=== PATIENT | female | born 1950 | race Caucasian/White ===

== ENCOUNTER 2018-01-11 12:32 | Inpatient (IN) | payer OTHER ==
[2018-01-11] MEDS: ONDANSETRON 4 MG INJ IV ×2 (13:12→22:26)
[2018-01-11] MEDS: morphine 4 MG/ML VIAL IV (13:13)
[2018-01-11 13:14] LABS: ADD MAN DIFF? NO
[2018-01-11 13:20] LABS: BASOPHILS % 0.2 % (0.0-2.0); EOSINOPHILS % 0.2 % (0.0-7.0); HEMATOCRIT 35.3 % (37.0-47.0); HEMOGLOBIN 11.3 g/dl (12.0-16.0); LYMPHOCYTES # 0.9 10^3/ul (0.8-2.9); MEAN CORPUSCULAR HEMOGLOBIN 26.7 pg (29.0-33.0); MEAN CORPUSCULAR VOLUME 83.3 fl (82.0-101.0); MEAN PLATELET VOLUME 10.4 fl (7.4-10.4); MONOCYTE # 0.4 10^3/ul (0.3-0.9); NEUTROPHIL # 9.7 10^3/ul (1.6-7.5); NEUTROPHILS % 87.2 % (39.0-77.0); PLATELET COUNT 264 10^3/UL (140-415); RED BLOOD COUNT 4.24 10^6/ul (4.20-5.40); RED CELL DISTRIBUTION WIDTH 14.6 % (11.5-14.5)
[2018-01-11 13:20] LABS: WHITE BLOOD COUNT 11.1 10^3/ul (4.8-10.8)
[2018-01-11 13:24] LABS: ADD UMIC NO; UR ASCORBIC ACID NEGATIVE (NEGATIVE); UR BILIRUBIN (Dip) NEGATIVE (NEGATIVE); UR BLOOD (Dip) NEGATIVE (NEGATIVE); UR CLARITY CLEAR (CLEAR); UR COLOR YELLOW (YELLOW); UR GLUCOSE (Dip) NEGATIVE (NEGATIVE); UR KETONES (Dip) NEGATIVE (NEGATIVE); UR LEUKOCYTE ESTERASE (Dip) NEGATIVE Leu/ul (NEGATIVE); UR NITRITE (Dip) NEGATIVE (NEGATIVE); UR SPECIFIC GRAVITY (Dip) 1.018 (1.003-1.030); UR TOTAL PROTEIN (Dip) NEGATIVE (NEGATIVE); UR UROBILINOGEN (Dip) NEGATIVE (NEGATIVE)
[2018-01-11 13:41] LABS: ALANINE AMINOTRANSFERASE 31 IU/L (13-69); ALBUMIN 3.9 g/dl (3.3-4.9); ALBUMIN/GLOBULIN RATIO 1.14; ALKALINE PHOSPHATASE 101 IU/L (42-121); ANION GAP 16 (8-16); ASPARTATE AMINO TRANSFERASE 20 IU/L (15-46); BILIRUBIN,INDIRECT 0.3 mg/dl (0-1.1); BILIRUBIN,TOTAL 0.3 mg/dl (0.2-1.3); BLOOD UREA NITROGEN 22 mg/dl (7-20); CALCIUM 9.6 mg/dl (8.4-10.2); CARBON DIOXIDE 23 mmol/L (21-31); CHLORIDE 109 mmol/L (97-110); CREATININE 0.43 mg/dl (0.44-1.00); GLUCOSE 127 mg/dl (70-220); LIPASE 39 U/L (23-300); POTASSIUM 4.1 mmol/L (3.5-5.1); SODIUM 144 mmol/L (135-144); TOTAL PROTEIN 7.3 g/dl (6.1-8.1)
[2018-01-11] MEDS ORDERED: ACETAMINOPHEN 325 MG TAB PO ×2 (16:00→16:30)
[2018-01-11] MEDS ORDERED: ONDANSETRON 4 MG INJ IV ×3 (16:00→20:30)
[2018-01-11] MEDS: AMPICILLIN/SULB 3 GM/NS (PMX) 100 ML IVPB (16:13)
[2018-01-11 16:27] LABS: INR 1.09; PROTIME 14.2 Sec (11.9-14.9); PT RATIO 1.1
[2018-01-11 16:28] LABS: PARTIAL THROMBOPLASTIN TIME 29.2 Sec (25.0-35.0)
[2018-01-11] MEDS ORDERED: MAGNESIUM HYDROXIDE 30ML CUP PO (16:30)
[2018-01-11] MEDS ORDERED: NACL 0.9% 3 ML SYG IV (16:30)
[2018-01-11] MEDS ORDERED: ACETAMINOPHEN 650 MG SUPP PR (16:30)
[2018-01-11] MEDS ORDERED: DOCUSATE SODIUM 100 MG CAP PO (16:30)
[2018-01-11] MEDS ORDERED: BISACODYL 10 MG SUPP PR (16:30)
[2018-01-11] MEDS ORDERED: morphine 2 MG INJ IV ×2 (16:30→19:00)
[2018-01-11 17:22] LABS: FREE T4 (FREE THYROXINE) 2.51 ng/dl (0.78-2.44)
[2018-01-11 17:48] LABS: THYROID STIMULATING HORMONE < 0.015 MIU/L (0.465-4.680)
[2018-01-11] MEDS: hydrALAzine 20 MG INJ IV (17:52)
[2018-01-11] MEDS: DEXTROSE 5%-0.9% NACL 1,000 ML IV (17:52)
[2018-01-11] MEDS ORDERED: HYDROCODONE/APAP (5/325) TAB PO (19:00)
[2018-01-11] MEDS ORDERED: IBUPROFEN 600 MG TAB PO (19:00)
[2018-01-11] MEDS ORDERED: LIDOCAINE 1% (MPF) 30 ML INJ (19:15)
[2018-01-11] MEDS ORDERED: LIDOCAINE 1% (MDV) 20 ML INJ (19:28)
[2018-01-11] MEDS ORDERED: ROCURONIUM 50 MG INJ (19:28)
[2018-01-11] MEDS ORDERED: ETOMIDATE 20 MG INJ (19:28)
[2018-01-11] MEDS ORDERED: LABETALOL HCL 20MG INJ (19:38)
[2018-01-11] MEDS ORDERED: ACETAMINOPHEN 1000MG/100ML IV 100 ML (19:43)
[2018-01-11] MEDS ORDERED: ONDANSETRON 4 MG INJ (19:43)
[2018-01-11] MEDS ORDERED: DEXAMETHASONE 4 MG/ML 1 ML INJ (19:43)
[2018-01-11] MEDS ORDERED: KETOROLAC 30 MG INJ (19:45)
[2018-01-11] MEDS: BUPIVACAINE 0.25%/EPI (SDV) 30 ML INJ INJ (19:46)
[2018-01-11] MEDS: LIDOCAINE 1% (MPF) 30 ML INJ INJ (19:47)
[2018-01-11] MEDS ORDERED: MIDAZOLAM 1 MG/ML 2 ML INJ (19:49)
[2018-01-11] MEDS ORDERED: ROPIVACAINE 0.2% 20 ML VIAL (20:05)
[2018-01-11] MEDS ORDERED: SUGAMMADEX SODIUM 200 MG/2 ML VIAL IV (20:05)
[2018-01-11] MEDS ORDERED: LABETALOL HCL 20MG INJ IV (20:30)
[2018-01-11] MEDS ORDERED: HYDROmorphONE (0.2 MG/ML) 10ML SYG IV (20:30)
[2018-01-11] MEDS ORDERED: hydrALAzine 20 MG INJ IV (20:30)
[2018-01-11] MEDS: D5W-0.45 NACL + KCL 20 MEQ 1,000 ML IV (21:33)
[2018-01-11] MEDS ORDERED: PIPER-TAZO 3.375 GM IV (PMX) 100 ML IVPB (22:00)
[2018-01-11] MEDS: PIPER-TAZO 3.375 GM IV (PMX) 100 ML IVPB (23:09)
[2018-01-12] MEDS: ACETAMINOPHEN 325 MG TAB PO ×3 (00:18→11:05)
[2018-01-12] MEDS: D5W-0.45 NACL + KCL 20 MEQ 1,000 ML IV ×2 (04:59→08:50)
[2018-01-12 05:17] LABS: ADD MAN DIFF? NO
[2018-01-12 05:26] LABS: WHITE BLOOD COUNT 8.2 10^3/ul (4.8-10.8)
[2018-01-12 05:26] LABS: ABNORMAL IP MESSAGE 1; HEMATOCRIT 32.5 % (37.0-47.0); HEMOGLOBIN 10.5 g/dl (12.0-16.0); LYMPHOCYTES # 0.5 10^3/ul (0.8-2.9); MEAN CORPUSCULAR HEMOGLOBIN 27.1 pg (29.0-33.0); MEAN CORPUSCULAR HGB CONC 32.3 g/dl (32.0-37.0); MEAN CORPUSCULAR VOLUME 83.8 fl (82.0-101.0); MEAN PLATELET VOLUME 10.8 fl (7.4-10.4); MONOCYTE # 0.2 10^3/ul (0.3-0.9); NEUTROPHIL # 7.5 10^3/ul (1.6-7.5); NEUTROPHILS % 92.3 % (39.0-77.0); PLATELET COUNT 238 10^3/UL (140-415); RED BLOOD COUNT 3.88 10^6/ul (4.20-5.40); RED CELL DISTRIBUTION WIDTH 14.5 % (11.5-14.5)
[2018-01-12] MEDS: PIPER-TAZO 3.375 GM IV (PMX) 100 ML IVPB ×2 (05:36→12:10)
[2018-01-12] MEDS: PANTOPRAZOLE 40 MG INJ IV (05:36)
[2018-01-12 05:52] LABS: LYMPHOCYTES % 5.5 % (15.0-51.0); POSITIVE DIFF @See below
[2018-01-12] MEDS: ENOXAPARIN 40 MG/0.4 ML SYG SC (06:08)
[2018-01-12 06:20] LABS: ALANINE AMINOTRANSFERASE 28 IU/L (13-69); ALBUMIN 3.2 g/dl (3.3-4.9); ALBUMIN/GLOBULIN RATIO 1.06; ALKALINE PHOSPHATASE 79 IU/L (42-121); ANION GAP 11 (8-16); ASPARTATE AMINO TRANSFERASE 18 IU/L (15-46); BILIRUBIN,INDIRECT 0.5 mg/dl (0-1.1); BILIRUBIN,TOTAL 0.5 mg/dl (0.2-1.3); BLOOD UREA NITROGEN 14 mg/dl (7-20); CALCIUM 9.3 mg/dl (8.4-10.2); CARBON DIOXIDE 25 mmol/L (21-31); CHLORIDE 109 mmol/L (97-110); GLUCOSE 189 mg/dl (70-220); MAGNESIUM 1.8 mg/dl (1.7-2.5); PHOSPHORUS 4.4 mg/dl (2.5-4.9); POTASSIUM 4.2 mmol/L (3.5-5.1); SODIUM 141 mmol/L (135-144); TOTAL PROTEIN 6.2 g/dl (6.1-8.1)
== END 2018-01-12 14:45 | disposition home or self-care (01) | DRG 343 ==
LOC: E/R 12:32 → MS1 15:41
PROC: 0DTJ4ZZ Resection of Appendix, Percutaneous Endoscopic Approach (ICD-10-PCS; principal; 2018-01-11 18:30)
DX: K35.80 Unspecified acute appendicitis (principal); I10 Essential (primary) hypertension; K29.70 Gastritis, unspecified, without bleeding; K44.9 Diaphragmatic hernia without obstruction or gangrene
CPT/HCPCS: 36415; 71045; 74176; 80053; 81003; 83690; 83735; 84100; 84439; 84443; 85025; 85610; 85730; 88304; 93005; 96365; 96375; 99285-25